=== PATIENT | female | born 1995 | race African-American/Black ===

== ENCOUNTER 2016-12-28 15:40 | Emergency (ER) | payer MEDICAID ==
[~2016-12-28] VITALS: Ht 160 cm; Wt 61.2 kg
[~2016-12-28 15:40] MED LIST: ALBU2.5V13 NEB
[2016-12-28] MEDS ORDERED: SODIUM CHLORIDE 0.9% 1,000 ML IV ONE ×2 (16:15→18:15)
[2016-12-28] MEDS ORDERED: KETOROLAC 15MG/ML VIAL IV ONE (16:15)
[2016-12-28] MEDS ORDERED: ONDANSETRON HCL 4MG/2ML VIAL IV ONE (16:15)
[2016-12-28 16:37] LABS: CHLORIDE 101 mEq/L (98-107); INDEX HEMOLYSI 1 (1-3); INDEX ICTERIC 1 (1-4); INDEX LIPEMIC 1 (1-3)
[2016-12-28 16:44] LABS: BASOPHILS % 0.3 % (0.0-2.0); HEMATOCRIT. 36.7 % (36.0-48.0); HEMOGLOBIN. 12.5 g/dL (12.0-16.0); LYMPHOCYTES % 12.4 % (20.0-50.0); MEAN CORPUSCULAR HEMOGLOBIN 28.4 pg (28.0-32.0); MEAN CORPUSCULAR HGB CONC 34.2 g/dL (31.0-37.0); MEAN PLATELET VOLUME 8.5 fl (7.4-10.4); MONOCYTES % 8.3 % (2.0-8.0); PLATELET 172 x1000/uL (130-400); RED BLOOD CELL COUNT 4.42 mill/uL (4.2-5.4); RED CELL DISTRIBUTION WIDTH 12.3 % (11.6-14.6)
[2016-12-28 16:46] LABS: ALANINE AMINOTRANSFERASE 14 IU/L (13-61); ALBUMIN 3.4 g/dL (3.4-5.0); ANION GAP 11; CALCIUM 8.3 mg/dL (8.5-10.1); CARBON DIOXIDE 26 mEq/L (21-32); LIPASE 77 IU/L (73-393); UREA NITROGEN BLOOD 7 mg/dL (7-21); eGFR > 60 mL/min (>60)
[2016-12-28] MEDS ORDERED: ACETAMINOPHEN 500MG TABLET PO ONE (17:15)
[2016-12-28 17:30] LABS: CLARITY URINE CLEAR (CLEAR); COLOR URINE DARK YELLOW (YELLOW); GLUCOSE URINE NEGATIVE (NEGATIVE); KETONES URINE 3+ (NEGATIVE); LEUKOCYTE ESTERASE URINE NEGATIVE (NEGATIVE); NITRITE URINE NEGATIVE (NEGATIVE); OCCULT BLOOD URINE 3+ (NEGATIVE); PROTEIN URINE TRACE (NEGATIVE); SPECIFIC GRAVITY URINE 1.026 (1.005-1.030)
[2016-12-28 17:55] LABS: BACTERIA URINE 2+; RBC URINE 0-2 /hpf (0-2); SQUAMOUS EPITHELIAL CELL URINE 1+ /lpf (RARE/1+); WBC URINE 0-2 /hpf (0-2)
[2016-12-28] MEDS ORDERED: CEFTRIAXONE 1 G PREMIX 50 ML IV ONE (18:15)
[2016-12-28 21:02] VITALS: BP 122/74
== END 2016-12-28 21:04 | disposition home or self-care (01) ==
LOC: ER 17:47
DX: N12 Tubulo-interstitial nephritis, not specified as acute or chronic (principal); J45.909 Unspecified asthma, uncomplicated; Z79.899 Other long term (current) drug therapy
CPT/HCPCS: 36415; 71010; 76770; 80053; 81001; 81025; 83690; 85025; 87086; 87804; 96361; 96365; 96366; 96375; 99285; J0696; J1885; J2405; J7030; Z7610

== ENCOUNTER 2021-01-18 13:28 | Emergency (ER) | payer MEDICAID ==
[~2021-01-18] VITALS: Ht 154.9 cm; Wt 49.1 kg
[~2021-01-18 13:28] MED LIST changes: +FLEXERIL; +KEPP500 MT
[2021-01-18] MEDS ORDERED: SODIUM CHLORIDE 0.9% 1,000 ML IV ONE (14:30)
[2021-01-18 14:45] LABS: BASOPHILS % 0.6 % (0.0-2.0); EOSINOPHILS % 0.5 % (0.0-5.0); HEMATOCRIT. 38.4 % (36.0-48.0); HEMOGLOBIN. 13.1 g/dL (12.0-16.0); MEAN CORPUSCULAR VOLUME 90.8 fL (81.0-99.0); MEAN PLATELET VOLUME 9.6 fl (7.4-10.4); MONOCYTES % 6.3 % (2.0-8.0); NEUTROPHILS % 71.6 % (40.0-76.0); PLATELET 127 x1000/uL (130-400); RED BLOOD CELL COUNT 4.23 mill/uL (4.2-5.4); RED CELL DISTRIBUTION WIDTH 13.3 % (11.6-14.6)
[2021-01-18 14:51] LABS: CHLORIDE 108 mEq/L (98-107)
[2021-01-18 14:55] LABS: ETHANOL BLOOD < 10 mg/dL; INR 1.1; PROTHROMBIN TIME 11.4 sec (9.6-11.0)
[2021-01-18 14:58] LABS: HCG SCREEN NEGATIVE
[2021-01-18 16:52] LABS: *AMPHETAMINES SCREEN URINE NEGATIVE (NEGATIVE); *BARBITURATES SCREEN URINE NEGATIVE (NEGATIVE); *BENZODIAZEPINES SCREEN URINE NEGATIVE (NEGATIVE); *COCAINE SCREEN URINE NEGATIVE (NEGATIVE)
[2021-01-18 16:53] LABS: METHADONE URINE SCREEN NEGATIVE (NEGATIVE); OPIATES URINE SCREEN NEGATIVE (NEGATIVE); PHENCYCLIDINE URINE SCREEN NEGATIVE (NEGATIVE)
[2021-01-18 16:54] LABS: CLARITY URINE CLOUDY (CLEAR); COLOR URINE YELLOW (YELLOW); KETONES URINE TRACE (NEGATIVE); LEUKOCYTE ESTERASE URINE 1+ (NEGATIVE); NITRITE URINE NEGATIVE (NEGATIVE); OCCULT BLOOD URINE NEGATIVE (NEGATIVE); PH URINE 7.5 (4.5-8.0); PROTEIN URINE NEGATIVE (NEGATIVE); UROBILINOGEN URINE 0.2 E.U./dL (0.2-1.0)
[2021-01-18 16:57] LABS: CANNABINOID URINE SCREEN PRESUMTIVE POSITIVE (NEGATIVE)
[2021-01-18] MEDS ORDERED: NITR-87 MT (17:49)
[2021-01-18 18:11] VITALS: BP 115/72
== END 2021-01-18 18:44 | disposition home or self-care (01) ==
LOC: ER 13:28
DX: R42 Dizziness and giddiness (principal); R53.1 Weakness; R51.9 Headache, unspecified; R03.0 Elevated blood-pressure reading, without diagnosis of hypertension; G40.909 Epilepsy, unspecified, not intractable, without status epilepticus
CPT/HCPCS: 36415; 70450; 71045; 80053; 80305; 80320; 81003; 81025; 84703; 85025; 85610; 93005; 96360; 99285; J7030; G0480